=== PATIENT | female | born 1945 | race Two or more races ===

== ENCOUNTER 2025-02-06 11:33 | Emergency (ER) | payer MEDICARE, OTHER ==
[~2025-02-06] VITALS: Ht 149.9 cm; Wt 73.1 kg
--- NOTE | 2025-02-06 11:49 | ED.PDOC ---
Musculoskeletal HPI Comments 79y F who presents to the ED for chief complaint of extremity pain. - pt states she has been having R wrist pain since last night PM, - pt states she has been having, redness, swelling and pain and home health nurse told pt to come to the ED for evaluation - pt states she went to urgent care and told to come to the ED for insurance not accepted at urgent care - pt in the ED, has noted decreased range of motion with flexion and extension but otherwise normal pulses - pt has noted history of arthritis and takes gabapentin - pt otherwise denies any associated trauma or associated fall - pt denies any other symptoms at this time Past Medical history: COPD, neuropathy,HTN, arthritis, Past Surgical history: cholecystectomy, hernia x2, L shoulder and R arm Medications: lisinopril, gabapentin Allergies: penicillin Social History: endorses ETOH, endorses tobacco use, denies drug use Darrin HPI: Poor Historian. Right wrist pain swelling. No fall or trauma. Decreased range of motion secondary to pain. Slightly erythematous and slightly swollen. Patient is ne urovascularly intact in the affected extremity. Radial pulses palpable. Patient is able to operations manager/coordinator. Past Medical History: Past Surgical History: REVIEW OF SYSTEMS: CONSTITUTIONAL: Denies acute: fever, diaphoresis, chills, generalized weakness. HEAD: Denies acute: headache, photophobia Eyes: Denies acute: Double vision, vision loss, eye pain, eye discharge. EARS: Denies acute: tinnitus, hearing loss, ear discharge, ear pain, THROAT: Denies acute: sore throat, swelling, difficulty swallowing , pain with swallowing, change in voice. NECK: Denies acute: neck pain, neck swelling, stiff neck. HEART: Denies acute : chest pain, palpitations, LUNGS: Denies acute: SOB, wheezing, cough, hemoptysis ABDOMEN: Denies acute: abdominal pain, Nausea, Vomiting, diarrhea, melena , hematemesis, hematochezia SKIN: Denies acute: rash, redness, lesions, itchiness. EXTREMITIES: Denies acute: calf pain, numbness, tingling, weakness, Denies acute: Low back pain. Neuro: Denies acute: focal neurological deficit, motor or sensory focal neurological deficit, tremors, seizure like activity, confusion, dizziness, change in mental status, loss of bowel or bladder function, cauda equina like symptoms. : Denies acute: dysuria, hematuria, flank pain, increase in urinary frequency. PSYCH: Denies acute: hallucination, suicidal ideation, homicidal ideation. FEMALE: Denies acute: abnormal vaginal bleeding, foul odor, unusual discharge. PHYSICAL EXAM: General: -----mild---acute distress, awake and alert. Head: normocephalic, atraumatic. Neck: supple, trachea is midline, no swelling. Throat: Normal phonation. Eyes:, no erythema, no purulent discharge, no proptosis, no icterus. Heart: regular rate, regular rhythm, no significant murmur appreciated. Lungs: no apparent respiratory distress, Able to speak in full sentences. No wheezing, no rhonchi, no crackles. No stridors Clear to auscultation bilaterally. Abdomen: non tender to palpation, non distended, soft, no guarding, no rebound, + bowel sounds. Neuro: Awake, Alert, oriented to name, self, situation, follows commands GCS=15. Speech is normal. Skin: no petechia, no purpura, no cyanosis, non-pale, not jaundice. Lower extremities: --no - Pitting edema no deformity, no focal swelling, no calf TTP. Makes eye contact. moves all four extremities. Face: no apparent facial droop. Evaluation of the area of complaint: Right wrist is noted to be slightly erythematous at the dorsum aspect of the wrist with slight swelling and t enderness to palpation. Decreased range of motion of the wrist secondary to pain. Patient is neurovascularly intact in the affected wrist/hand extremity. No apparent deformity. ED COURSE: Chief Complaint: Upper Extremity Time Seen by MD: 11:36 Primary Care Provider: NONE Reviewed Notes: Nurses Notes, Allergies Allergies: Coded Allergies: Penicillins (Verified Allergy, Unknown, 02/06/25) Information Source: Patient Mode of Arrival: Wheelchair Location: Right Was a procedure done? Was a procedure done?: No X-Ray, Labs, Meds, VS Vital Signs Date Time Temp Pulse Resp B/P (MAP) Pulse Ox O2 Delivery O2 Flow Rate FiO2 02/06/25 14:07 87 18 99 Room Air 02/06/25 14:07 98.2 87 18 103/63 (76) 99 98.2 02/06/25 12:47 Room Air* 0 21 02/06/25 11:38 97.7 82 20 115/74 (88) 97 97.7 Lab Test 02/06/25 13:47 Range/Units Uric Acid 6.1 3.1-7.8 mg/dL Current Medications Medications (Trade) Dose Ordered Sig/Jus Route Start Time Stop Time Status Last Admin Acetaminophen/ Hydrocodone Bitart ([place] 5/325MG Tab) 1 tab ONCE ONCE PO 02/06/25 12:30 02/06/25 12:37 DC 02/06/25 12:51 [place] [id number] Ph: [phone] DIAGNOSTIC IMAGING Diagnostic Imaging Report : [id number] Signed PATIENT: MARYCRUZ MICHEL ACCT: [id number] UNIT: [id number] : 1945 LOC: ER ROOM / BED: / AGE / SEX: 79 / F ADM STATUS: REG ER SERVICE 1146 ORDERING PHYSICIAN: MANGO GRUBBS DO PROCEDURE(s): RWRI - R WRIST 3+ VIEW XRAY REASON: RIGHT WRIST PAIN ORDER NUMBER(s): [id number], ACCESSION NUMBER(s): [id number] EXAM: XY R WRIST 3+ VIEW XRAY HISTORY: RIGHT WRIST PAIN COMPARISON: None TECHNIQUE: 3 views of the right wrist were performed. FINDINGS: No acute fracture or dislocation are identified about the right wrist. Severe radiocarpal joint space narrowing with [id number]-ju-dlrw contact. There is deformity and resorption of the trapezium. 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 Severe 1st carpometacarpal joint space narrowing. IMPRESSION: 1. No fracture or dislocation. Severe osteoarthritis in the wrist as described. ATED BY: AUSTEN GANDHI MD DICTATED DATE/TIME: 02/06/251216 SIGNED BY: AUSTEN GANDHI MD SIGNED DATE/TIME: 02/06/251216 CC: Patient Education/Counseling: Diagnosis, Treatment Family Education/Counseling: No Family Present Departure 1 Departure Time of Disposition: 13:22 Impression: Primary Impression: Osteoarthritis of right wrist Disposition: 01 HOME / SELF CARE / HOMELESS Condition: Stable Additional Instructions: Additional instructions: You MUST follow-up with your primary care/family doctor in 1 to 2 days. If you are unable to see your primary care/family doctor, please return to our emergency room for re-assessment and re-evaluation in 1 to 2 days. Return to the emergency room here in our facility or to the nearest ER [facility] if your symptoms change or worsen. CONSULTATIONS: you MUST Follow-up for consultation as soon as possible with: orthopedic doctor and rheumatology in 1-2 days. Please call for appointment. You MUST call the consultants office yourself to make an appointment. You may need to arrange that through your insurance and/or your primary/family doctor. If you are unable to see the senior sustainability consultant in 1 to 2 days, you must return to our emergency room (or any other ER of your choice) for re-assessment and re- evaluation. Adequate fluid hydration. Below is a copy of your radiological report for follow up: [place] [id number] Ph: [phone] DIAGNOSTIC IMAGING Diagnostic Imaging Report : [id number] Signed PATIENT: MARYCRUZ MICHEL ACCT: [id number] UNIT: [id number] : 1945 LOC: ER ROOM / BED: / AGE / SEX: 79 / F ADM STATUS: REG ER SERVICE 1146 ORDERING PHYSICIAN: MANGO GRUBBS DO PROCEDURE(s): RWRI - R WRIST 3+ VIEW XRAY REASON: RIGHT WRIST PAIN ORDER NUMBER(s): [id number], ACCESSION NUMBER(s): [id number] EXAM: XY R WRIST 3+ VIEW XRAY HISTORY: RIGHT WRIST PAIN COMPARISON: None TECHNIQUE: 3 views of the right wrist were performed. FINDINGS: No acute fracture or dislocation are identified about the right wrist. Severe radiocarpal joint space narrowing with tqbo-fl-etmo contact. There is deformity and resorption of the trapezium. 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 Severe 1st carpometacarpal joint space narrowing. IMPRESSION: 1. No fracture or dislocation. Severe osteoarthritis in the wrist as described. ATED BY: AUSTEN GANDHI MD DICTATED DATE/TIME: 02/06/251216 SIGNED BY: AUSTEN GANDHI MD SIGNED DATE/TIME: 02/06/251216 CC: Discharged With: Self Critical Care Note Critical Care Time?: No I personally scribed for MANGO GRUBBS DO ([email or web address]) on 02/06/25 at 11:49. Electronically submitted by Jacque Richard ([facility] I personally scribed for MANGO GRUBBS DO ([email or web address]) on 02/06/25 at 12:23. Electronically submitted by Jacque Richard ([facility] I personally scribed for MANGO GRUBBS DO ([email or web address]) on 02/06/25 at 12:42. Electronically submitted by Jacque Richard ([facility] I personally scribed for MANGO GRUBBS DO ([email or web address]) on 02/06/25 at 12:47. Electronically submitted by Jacque Richard ([facility] I personally scribed for MANGO GRUBBS DO ([email or web address]) on 02/06/25 at 12:54. Electronically submitted by Jacque Richard ([facility]). I personally scribed for MANGO GRUBBS DO ([email or web address]) on 02/06/25 at 12:54. Electronically submitted by Jacque Richard ([facility] MANGO GRUBBS DO Feb 06, 2025 11:49
--- NOTE | 2025-02-06 12:19 | DVH ---
EXAM: XY R WRIST 3+ VIEW XRAY HISTORY: RIGHT WRIST PAIN COMPARISON: None TECHNIQUE: 3 views of the right wrist were performed. FINDINGS: No acute fracture or dislocation are identified about the right wrist. Severe radiocarpal joint space narrowing with [id number] contact. There is deformity and resorption of the trapezium. Mineralizat ion noted in the TFCC compatible with CPPD arthropathy. Severe 1st carpometacarpal joint space narro wing. IMPRESSION: 1. No fracture or dislocation. Severe osteoarthritis in the wrist as described.
[2025-02-06] MEDS: HYDROcodone-ACET 5/325MG TAB PO ONE (12:51)
[2025-02-06 14:07] VITALS: BP 103/63; PULSE 87; RESP 18; TEMP 98.2; O2SAT 99
== END 2025-02-06 14:51 | disposition home or self-care (01) ==
LOC: ER 11:33
DX: M19.031 Primary osteoarthritis, right wrist (principal); I10 Essential (primary) hypertension; J44.9 Chronic obstructive pulmonary disease, unspecified; M19.90 Unspecified osteoarthritis, unspecified site; Z90.49 Acquired absence of other specified parts of digestive tract; Z98.890 Other specified postprocedural states; Z88.0 Allergy status to penicillin
CPT/HCPCS: 36415; 73110; 84550

== ENCOUNTER → 2025-04-22 18:49 | Emergency (ER) | payer OTHER, MEDICARE, MEDICAID | END | disposition left against medical advice (07) | LOC: ER 18:49 | DX: R51.9 Headache, unspecified (principal); Z53.21 Procedure and treatment not carried out due to patient leaving prior to being seen by health care provider ==